=== PATIENT | female | born 1965 | race African-American/Black ===

== ENCOUNTER 2017-04-08 06:54 | Emergency (ER) | payer MEDICARE, OTHER ==
[2017-04-08] MEDS ORDERED: Albuterol Sulfate 2.5 mg/3 ml Neb ONE (07:40)
[2017-04-08] MEDS ORDERED: methylPREDNISolone Sod Succ/PF 125 MG/2 ML VIAL ONE (07:40)
[2017-04-08] MEDS ORDERED: Sodium Chloride 0.9% 1,000 ML ONE (07:40)
[2017-04-08 08:16] LABS: Band 2 % (5-11); Eosinophils 3 % (0-10); Hemoglobin 12.2 g/dL (12.0-16.0); Lymphocytes 15 % (21-51); MDiff Complete? YES; Mean Corpuscular Hemoglobin 25.1 pg (27.0-31.0); Mean Corpuscular Volume 81.1 fl (81.0-99.0); Mean Platelet Volume 7.7 fL (7.4-10.4); Monocytes 6 % (0-10); Neutrophil 72 % (42-75); PLT Morphology Comment Appears Adequate; Platelet Count 165 thou/uL (130-400); RBC Distribution Width 14.4 % (11.5-14.5); RBC Morphology Normal; Reactive Lymphocytes 2 % (0-10); Red Blood Cell (RBC) Count 4.85 mill/uL (4.20-5.40); White Blood Cell (WBC) Count 9.5 thou/uL (4.8-10.8)
[2017-04-08 08:26] LABS: ALT (SGPT) 9 U/L (8-55); AST (SGOT) 13 U/L (5-34); Albumin 3.9 g/dL (3.5-5.0); Alkaline Phosphatase 72 U/L (40-150); Anion Gap 16 mmol/L (10-20); BUN (Urea Nitrogen) 13 mg/dL (9.8-20.1); Bilirubin, Total 0.3 mg/dL (0.2-1.2); Calc. Creatinine Clearance 0 mL/min (70-130); Calcium 9.4 mg/dL (7.8-10.44); Carbon Dioxide 23 mmol/L (22-29); Chloride 106 mmol/L (98-107); Estimated GFR-MDRD Greater than 90; Globulin 3.8 g/dL (2.4-3.5); Glucose 115 mg/dL (70-105); Potassium 3.7 mmol/L (3.5-5.1); Protein, Total 7.7 g/dL (6.0-8.3); Sodium 141 mmol/L (136-145)
[2017-04-08 08:29] LABS: CKMB 0.6 ng/mL (0-6.6); Troponin I 0.018 ng/mL (< 0.028)
--- NOTE | 2017-04-08 08:50 | RAD ---
2 VIEWS CHEST: Date: 04/08/17 COMPARISON: 05/04/14. HISTORY: Cough and shortness of breath. FINDINGS: Two views of the chest show normal sized cardiomediastinal silhouette. There is no evidence of conso lidation, mass, or pleural effusion. The bones are unremarkable. IMPRESSION: No evidence of acute cardiopulmonary disease. POS: [id number]
== END 2017-04-08 09:50 | disposition home or self-care (01) ==
LOC: NAV ERS 06:54
DX: J45.901 Unspecified asthma with (acute) exacerbation (principal); J20.9 Acute bronchitis, unspecified; E66.9 Obesity, unspecified; I10 Essential (primary) hypertension; M06.9 Rheumatoid arthritis, unspecified; Z79.84 Long term (current) use of oral hypoglycemic drugs; Z79.899 Other long term (current) drug therapy
CPT/HCPCS: 36415; 71020; 80053; 82553; 84484; 85025; 93005; 94640; 94644; 96361; 96374; J2930; J7050; J7611; J7620